=== PATIENT | female | born 1990 | race Caucasian/White ===

== ENCOUNTER 2017-10-19 10:17 | Emergency (ER) | payer SELFPAY ==
[~2017-10-19] VITALS: Ht 157.5 cm; Wt 50.3 kg
[2017-10-19 11:43] LABS: BASOPHILS # (AUTO) 0.06 x10^3/uL (0-0.1); BASOPHILS % (AUTO) 1 % (0-1); EOSINOPHILS # (AUTO) 0.11 x10^3/uL (0-0.4); EOSINOPHILS % (AUTO) 2 % (1-7); LYMPHOCYTES # (AUTO) 1.77 x10^3/uL (1-3.4); LYMPHOCYTES % (AUTO) 27 % (22-44); MD NO; MEAN CORPUSCULAR HEMOGLOBIN 33.1 pg (27.0-34.8); MEAN CORPUSCULAR HGB CONC 33.2 g/dL (32.4-35.8); MEAN CORPUSCULAR VOLUME 99.6 fL (80-100); MEAN PLATELET VOLUME 8.6 fL (7.4-10.4); MONOCYTES # (AUTO) 0.52 x10^3/uL (0.2-0.8); MONOCYTES % (AUTO) 8 % (2-9); NEUTROPHILS # (AUTO) 4.21 x10^3/uL (1.8-6.8); NEUTROPHILS % (AUTO) 63 % (42-75); PLATELET COUNT 334 x10^3/uL (130-400); RED BLOOD COUNT 4.33 x10^6/uL (3.82-5.3); RED CELL DISTRIBUTION WIDTH 13.5 % (9.6-15.2)
[2017-10-19 11:55] LABS: ALANINE AMINOTRANSFERASE 23 U/L (12-78); ANION GAP 5 mmol/L (5-15); CALCIUM 8.7 mg/dL (8.5-10.1); CHLORIDE 109 mmol/L (98-107); CREATININE 0.82 mg/dL (0.55-1.02)
[2017-10-19 12:00] LABS: ALKALINE PHOSPHATASE 45 U/L (45-117); BILIRUBIN,TOTAL 0.6 mg/dL (0.2-1.0); TOTAL PROTEIN 7.3 g/dL (6.4-8.2)
[2017-10-19 12:02] LABS: ACETAMINOPHEN < 2 mcg/mL (10-30); SALICYLATE LEVEL < 1.7 mg/dL (2.8-20.0)
[2017-10-19 12:52] LABS: MICROSCOPIC INDICATED
[2017-10-19 13:03] LABS: AMPHETAMINE SCREEN, URINE Negative (Negative); BARBITURATE SCREEN, URINE Negative (Negative); BENZODIAZEPINE SCREEN, URINE Negative (Negative); CANNABINOID SCREEN, URINE Positive (Negative); COCAINE SCREEN, URINE Positive (Negative); METHADONE SCREEN, URINE Negative (Negative); OPIATE SCREEN, URINE Negative (Negative)
[2017-10-19 13:07] VITALS: BP 131/83
[2017-10-19 13:08] LABS: CULTURE INDICATED? YES
[2017-10-19] MEDS ORDERED: OLANZAPINE 5 MG TABLET PO PRN (15:30)
[2017-10-19] MEDS ORDERED: LABETALOL 5MG/ML, 20ML IVPush PRN (20:00)
[2017-10-19] MEDS ORDERED: hydrALAzine 20 MG/ML, 1ML IVPush PRN (20:00)
[2017-10-19] MEDS ORDERED: ONDANSETRON ODT 4 MG PO PRN (20:00)
[2017-10-19] MEDS ORDERED: ACETAMINOPHEN 325 MG TABLET PO PRN (20:00)
[2017-10-19] MEDS ORDERED: ZIPRASIDONE 20 MG INJ IM ONE ×2 (20:03→20:30)
== END 2017-10-19 22:41 | disposition left against medical advice (07) ==
LOC: ED 11:30 → UNDOADMOB 15:23 → EDIP 15:23 → ED 22:41
DX: F32.2 Major depressive disorder, single episode, severe without psychotic features (principal); F17.200 Nicotine dependence, unspecified, uncomplicated; Z79.899 Other long term (current) drug therapy
CPT/HCPCS: 36415; 80053; 80307; 80329; 81001; 84443; 84703; 85025; 87077; 87086; 87186; 93005; 99285; G0480

== ENCOUNTER 2017-10-20 00:31 | Observation (INO) | payer MEDICAID, OTHER ==
[~2017-10-20] VITALS: Ht 160 cm; Wt 50.0 kg
[2017-10-20] MEDS ORDERED: DIPH,PERTUSS(ACELL),TET VAC/PF 0.5 ML IM-VACC ONE ×2 (01:21→01:30)
[2017-10-20] MEDS ORDERED: BACITRACIN ZINC OINT 500U/GM, 0.9 GM ONE (01:32)
[2017-10-20] MEDS ORDERED: DIPHENHYDRAMINE 25 MG CAPSULE PO STA (03:40)
[2017-10-20] MEDS ORDERED: DIPHENHYDRAMINE 25 MG CAPSULE ONE (03:42)
[2017-10-20] MEDS ORDERED: OLANZAPINE 10 MG INJ IM PRN (05:00)
[2017-10-20 05:08] VITALS: BP 119/69
[2017-10-20 08:39] VITALS: BP 113/71
[2017-10-20 20:07] VITALS: BP 116/70
[2017-10-20] MEDS: BACITRACIN OINT 500U/GM, 15 GM TP SCH (21:00)
[2017-10-21] MEDS: BACITRACIN OINT 500U/GM, 15 GM TP SCH ×3 (08:28→20:57)
[2017-10-21 08:49] VITALS: BP 103/61
[2017-10-21] MEDS ORDERED: ACETAMINOPHEN 325 MG TABLET PO PRN (16:00)
[2017-10-21] MEDS ORDERED: IBUPROFEN 200 MG TABLET PO PRN (19:00)
[2017-10-21 19:18] VITALS: BP 113/75
[2017-10-22 07:26] VITALS: BP 104/59
[2017-10-22] MEDS: BACITRACIN OINT 500U/GM, 15 GM TP SCH ×3 (09:00→21:00)
[2017-10-22] MEDS: ARIPIPRAZOLE 10 MG TABLET PO SCH (11:00)
[2017-10-22 19:25] VITALS: BP 90/52
[2017-10-23 07:51] VITALS: BP 112/62
[2017-10-23] MEDS: ARIPIPRAZOLE 10 MG TABLET PO SCH (08:40)
[2017-10-23] MEDS: BACITRACIN OINT 500U/GM, 15 GM TP SCH ×3 (08:47→21:00)
[2017-10-23 19:28] VITALS: BP 111/66
[2017-10-24 08:20] VITALS: BP 99/66
[2017-10-24] MEDS: BACITRACIN OINT 500U/GM, 15 GM TP SCH ×3 (09:00→21:00)
[2017-10-24] MEDS: ARIPIPRAZOLE 10 MG TABLET PO SCH (09:00)
[2017-10-24 20:03] VITALS: BP 99/63
[2017-10-25] MEDS: BACITRACIN OINT 500U/GM, 15 GM TP SCH ×2 (08:03→16:00)
[2017-10-25] MEDS: ARIPIPRAZOLE 10 MG TABLET PO SCH (08:03)
[2017-10-25 08:18] VITALS: BP 100/57
== END 2017-10-25 18:11 | disposition home or self-care (01) ==
LOC: ED 00:37 → INTOOBSV 01:35 → EDIP 01:35 → OBSVTOIN 01:35 → 2N 04:52
PROVIDERS: ADMIT Family Medicine; ATTEND Family Medicine
DX: F22 Delusional disorders (principal); F14.20 Cocaine dependence, uncomplicated; F31.9 Bipolar disorder, unspecified; F41.9 Anxiety disorder, unspecified; Z72.0 Tobacco use; Z59.0 Homelessness; F30.9 Manic episode, unspecified; Z79.899 Other long term (current) drug therapy; Z23 Encounter for immunization
CPT/HCPCS: 36415; 84702; 86695; 86696; 87252; 87255; 90471; 90715; 99285; G0378